=== PATIENT | female | born 2005 | race Caucasian/White ===

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

== ENCOUNTER 2024-01-24 11:49 | Emergency (ER) | payer BC, SELFPAY ==
[2024-01-24 12:00] VITALS: BP 107/77; PULSE 114; RESP 18; TEMP 36.9; O2SAT 100
--- NOTE | 2024-01-24 12:07 | ED_ITS ---
HPI - URI/Sore Throat General Chief Complaint: Upper Respiratory Infection Stated Complaint: Sore Throat/Headache Time Seen by Provider: 01/24/24 12:07 Source: patient, RN notes reviewed and old records reviewed Mode of arrival: ambulatory Limitations: no limitations History of Present Illness HPI Narrative: Patient present accompanied by her father. She is complaining of 2 week history of sinus pain and congestion, sore throat, postnasal drainage, cough, fatigue. She has been taking NyQuil, DayQuil, ibuprofen, Flonase, saline nasal spray. She reports minimal relief. States that she feels as though postnasal drainage and cough are worsening. She is not in any distress, including respiratory distress Related Data Home Medications Medication Instructions Recorded Confirmed albuterol sulfate 2.5 mg/3 mL 06/03/21 (0.083 %) solution for nebulization fluoxetine 20 mg tablet mg 06/03/21 rimegepant 75 mg disintegrating mg 11/03/23 tablet (Nurtec ODT) fluticasone furoate 100 inhalation 01/24/24 mcg-vilanterol 25 mcg/dose inhalation powder (Breo Ellipta) ketorolac 10 mg tablet mg 01/24/24 01/24/24 ondansetron 4 mg disintegrating mg 01/24/24 tablet Allergies Allergy/AdvReac Type Severity Reaction Status Date / Time rubbing alcohol Allergy Rash Uncoded 01/24/24 11:53 Review of Systems Review of Systems: All systems reviewed & are unremarkable except as noted in HPI and below Constitutional: Constitutional: Reports as per HPI, Reports no additional constitutional complaints and Reports lethargy ENT: Reports system reviewed and no additional complaints, except as documented, Reports nasal congestion, Reports nasal discharge, Reports sinus pain, Reports sinus pressure and Reports sore throat Cardiovascular: Cardiovascular: Reports no additional cardiovascular complaints Respiratory: Respiratory: Reports no additional respiratory complaints Gastrointestinal: Gastrointestinal: Reports no additional gastrointestinal complaints Musculoskeletal: Musculoskeletal: Reports myalgias PMFSH Past Medical History Medical History Asthma Migraines Amitriptyline [facility] Social History Social History Smoking status: Never smoker Gender identity (if verbalized by the patient): Female Comments At the time of my signature, I reviewed and agree with the nursing past medical, surgical, social, and family history. There is no relevant family history pertinent to the patient complaint. Exam Const: General: cooperative, no acute distress, alert and awake Orientation/consciousness: oriented to person, oriented to place and oriented to time HENMT: Head: normal to inspection Ears: TM abnormal dull bilateral Mouth: Yes moist mucous membranes Throat: posterior oropharynx abnormal erythema Resp: Effort & Inspection: normal respiratory effort and able to speak in complete sentences Auscultation: clear to auscultation bilaterally, no crackles, no rales, no rhonchi and no wheezes Cardio: Palpation: normal PMI Rate: regular rate Rhythm: regular rhythm Heart sounds: S1 normal heart sound present and S2 normal heart sound present Neuro: General: oriented to person, oriented to place and oriented to time Cranial nerves: Yes CN's II-XII intact bilaterally Psych: Appearance: grossly normal Thought process: Normal thought process present Insight: Good insight present (Psych) Judgement: Good judgement present (Psych) Course Course Level of Care: Express Care Visit Vital Signs Vital signs: Reviewed MDM - URI/Sore Throat MDM Narrative Medical decision making narrative: History and exam consistent with sinusitis. Patient nontoxic appearing, stable for discharge home on p.o. antibiotics and steroid burst. Discharge instructions reviewed with patient, as well as provided in writing per nursing staff. The instructions also include specific and strict return/GO TO THE ER as well as f/u information. All questions have been answered, and the patient deny any further questions with discharge and discharge plan. Some parts of this dictation were generated by voice recognition software and may contain typographical and/or grammatical inaccuracies. Differential Diagnosis Differential diagnosis: Likely upper respiratory infection, otitis media, sinusitis, viral infection, bronchitis and pharyngitis Medical Records Attestation: I reviewed the patient's medical records. Lab Data Attestation: I reviewed the patient's lab results. Discharge Plan Discharge Clinical Impression: Sinusitis Qualifiers: Sinusitis location: frontal Chronicity: acute Recurrence: not specified as recurrent Qualified Code(s): J01.10 - Acute frontal sinusitis, unspecified Patient Disposition: Home, Self-Care Condition: Stable Instructions: Antibiotic Form, Sinusitis (ED) Additional Instructions: Take medications as prescribed, follow with primary care provider. Emergency department for new or worse symptoms Patient Language: Greenlandic Prescriptions: New amoxicillin-pot clavulanate 875-125 mg tablet 1 tablet PO Q12H Qty: 20 0RF prednisone 50 mg tablet 50 mg PO DAILY Qty: 5 0RF No Action Nurtec ODT 75 mg tablet,disintegrating ketorolac 10 mg tablet ondansetron 4 mg tablet,disintegrating fluticasone furoate-vilanterol [Breo Ellipta] 100-25 mcg/dose blister with device INHALATION albuterol sulfate 2.5 mg /3 mL (0.083 %) solution for nebulization fluoxetine 20 mg tablet Follow-up/Referrals: Rasta,Vaishali Sandoval MD [Primary Care Provider] - 2 Weeks Time of Disposition: 12:33
[2024-01-24 12:14] LABS: EDSTREPNEGPOS1 Negative (Negative)
== END 2024-01-24 12:39 | disposition home or self-care (01) ==
PROVIDERS: Emergency Provider Nurse Practitioner Family; PCP Pediatrics Adolescent Medicine
DX: J01.10 Acute frontal sinusitis, unspecified (principal); J45.909 Unspecified asthma, uncomplicated
CPT/HCPCS: 87081; 87086; 87880; 99213; G0463

== ENCOUNTER 2024-03-28 13:41 | Emergency (ER) | payer BC, SELFPAY ==
[2024-03-28 14:00] VITALS: BP 108/77; PULSE 98; RESP 20; TEMP 37.4; O2SAT 100
--- NOTE | 2024-03-28 14:11 | ED.GENADULT ---
HPI - General Adult General Chief complaint: Headache Stated complaint: N/V/Headache Time Seen by Provider: 03/28/24 14:11 Source: patient Mode of arrival: ambulatory Limitations: no limitations History of Present Illness HPI narrative: 18-year-old female presents with her dad with complaint of headaches, fatigue, body aches, chills, upset stomach with coughing for 4-5 days. Vomited 3-4 times yesterday. Denies abdominal pain. No diarrhea. Afebrile. Patient has a history of migraines but states headache is not similar to her migraines. No chest pain or shortness breath. All systems reviewed and negative except as noted. Related Data Home Medications ?Medication ?Instructions ?Recorded ?Confirmed ?Last Taken ?Type albuterol sulfate 2.5 mg/3 mL 06/03/21 Unknown History (0.083 %) solution for nebulization fluoxetine 20 mg tablet mg 06/03/21 Unknown History rimegepant 75 mg disintegrating mg 11/03/23 Unknown History tablet (Nurtec ODT) fluticasone furoate 100 inhalation 03/28/24 Unknown History mcg-vilanterol 25 mcg/dose inhalation powder (Breo Ellipta) ondansetron 4 mg disintegrating mg 03/28/24 Unknown History tablet Allergies Allergy/AdvReac Type Severity Reaction Status Date / Time rubbing alcohol Allergy Rash Uncoded 03/28/24 13:52 Review of Systems Review of Systems: CONSTITUTIONAL: Denies fever, chills, or sweats. reports fatigue. EYES: Denies visual changes, redness, or discharge. ENT: Denies rhinorrhea, congestion, sore throat, or otalgia. CARDIOVASCULAR: Denies chest pain, palpitations, or edema. RESPIRATORY: Reports cough. Denies dyspnea. GASTROINTESTINAL: Denies abdominal pain. Reports nausea, vomiting. Denies diarrhea. GENITOURINARY: Denies dysuria or hematuria. SKIN: Denies rash or itching. MUSCULOSKELETAL: Denies back pain, joint pain . Reports myalgia. NEUROLOGIC: Denies headache, numbness, or weakness. PSYCHIATRIC: Denies anxiety or depression. All other systems reviewed are negative, except as documented in HPI. [facility] Past Medical History Medical History Asthma Migraines Amitriptyline Dr[facility] Social History Social History Smoking status: Never smoker Gender identity (if verbalized by the patient): Female Comments At time of signature, agree with nursing past medical, surgical, social and family history. There is no relevant family history pertinent to the presenting complaint. Exam Narrative: GENERAL: This is a well-nourished, well-developed patient, ill-appearing but no acute distress HEAD: normocephalic, atraumatic. EYES: PERRL. Sclera clear/white. Vision is grossly intact. EARS: External ears normal, auditory canals clear and without drainage, TMs normal without perforation. Hearing grossly intact. NOSE: External nose normal with no obvious nasal discharge, nares without redness, no rhinorrhea. THROAT: Mucous membranes moist, posterior pharynx clear. NECK: Neck supple, non-tender without lymphadenopathy, masses or thyromegaly. CARDIOVASCULAR: Regular rate and rhythm without murmurs, gallops, or rubs. RESPIRATORY: Clear to auscultation. Breath sounds equal bilaterally. No wheezes, rales, or rhonchi. GASTROINTESTINAL: Abdomen soft, non-tender, nondistended. Bowel sounds are active. No hepato-splenomegaly, or palpable masses. No guarding. SKIN: warm, Dry, intact with no suspicious lesions or rash, good texture and turgor. NEURO: awake, alert, and oriented to person, place and time. There were no obvious focal neurologic abnormalities. EXTREMITIES: No joint tenderness, effusion, or edema noted. Course Course Level of Care: Express Care Visit Vital Signs Vital signs: Vital Signs Temperature 37.4 C 03/28/24 14:00 Pulse Rate 98 03/28/24 14:00 Respiratory Rate 20 03/28/24 14:00 Blood Pressure 108/77 03/28/24 14:00 Pulse Oximetry 100 03/28/24 14:00 Oxygen Delivery Room Air 03/28/24 14:00 Temperature 37.4 C 03/28/24 14:00 Pulse Rate 98 03/28/24 14:00 Respiratory Rate 20 03/28/24 14:00 Blood Pressure 108/77 03/28/24 14:00 Pulse Oximetry 100 03/28/24 14:00 Oxygen Delivery Room Air 03/28/24 14:00 reviewed Medical Decision Making MDM Narrative Medical decision making narrative: negative COVID and influenza testing. No vomiting while Express Care. Patient able to keep down water. Will prescribe Zofran for nausea. Recommend follow-up PCP if symptoms not improving. no abdominal tenderness on palpation. Patient is aware of diagnosis, understands and agrees to treatment plan. Anticipatory guidance given. Patient agrees to follow-up as directed and is aware of reasons to seek care at the emergency department. Portions of this record may have been created with voice recognition software Vital Signs Vital Signs: Vital Signs Temperature 37.4 C 03/28/24 14:00 Pulse Rate 98 03/28/24 14:00 Respiratory Rate 20 03/28/24 14:00 Blood Pressure 108/77 03/28/24 14:00 Pulse Oximetry 100 03/28/24 14:00 Oxygen Delivery Room Air 03/28/24 14:00 Temperature 37.4 C 03/28/24 14:00 Pulse Rate 98 03/28/24 14:00 Respiratory Rate 20 03/28/24 14:00 Blood Pressure 108/77 03/28/24 14:00 Pulse Oximetry 100 03/28/24 14:00 Oxygen Delivery Room Air 03/28/24 14:00 Lab Data Labs: Lab Results 03/28/24 Range/Units 14:17 POC Influenza A Ag Negative (Negative) POC Influenza B Ag Negative (Negative) POC SARS CoV-2 Ag Negative (Negative) Discharge Plan Discharge Clinical Impression: Acute viral syndrome Patient Disposition: Home, Self-Care Condition: Stable Instructions: Acute Nausea and Vomiting (ED), Viral Syndrome (ED) Additional Instructions: your COVID and influenza test were negative today. Your symptoms are viral and may last 10-14 days. Take medications as prescribed. Zofran may cause constipation and abdominal bloating. Drink at least 64 oz of water a day. Follow-up with your primary care physician if symptoms are not improving. If you have severe abdominal pain, headache go to the ER. Patient Language: Slovak Prescriptions: New dicyclomine 20 mg tablet 20 mg PO Q6-8H PRN (Reason: abdominal cramping) Qty: 20 0RF ondansetron 4 mg tablet,disintegrating 4 mg PO Q8H PRN (Reason: nausea and vomiting) Qty: 12 0RF No Action Nurtec ODT 75 mg tablet,disintegrating ondansetron 4 mg tablet,disintegrating fluticasone furoate-vilanterol [Breo Ellipta] 100-25 mcg/dose blister with device INHALATION albuterol sulfate 2.5 mg /3 mL (0.083 %) solution for nebulization fluoxetine 20 mg tablet Follow-up/Referrals: Rasta,Vaishali Sandoval MD [Primary Care Provider] - Time of Disposition: 14:25
[2024-03-28 14:18] LABS: EDCOVIDSCREEN Negative (Negative); EDINFLUASCREEN Negative (Negative); EDINFLUBSCREEN Negative (Negative)
== END 2024-03-28 14:30 | disposition home or self-care (01) ==
PROVIDERS: Emergency Provider Nurse Practitioner Family; PCP Pediatrics Adolescent Medicine
DX: B34.9 Viral infection, unspecified (principal); Z20.822 Contact with and (suspected) exposure to COVID-19; Z79.899 Other long term (current) drug therapy
CPT/HCPCS: 87426; 87804; 99213; G0463